=== PATIENT | female | born 1990 | race Caucasian/White ===

== ENCOUNTER 2018-04-03 00:41 | Outpatient (CLI) | payer OTHER ==
[2018-04-03] MEDS ORDERED: PRENATAL 19 TA1 EACH PO (07:24)
[2018-04-03] MEDS ORDERED: FOLIC ACID0.8 MG PO (07:25)
== END 2018-04-03 10:51 | disposition home or self-care (01) ==
LOC: OBS/DEL 00:41
DX: O26.892 Other specified pregnancy related conditions, second trimester (principal); M62.830 Muscle spasm of back; O23.42 Unspecified infection of urinary tract in pregnancy, second trimester; Z34.82 Encounter for supervision of other normal pregnancy, second trimester

== ENCOUNTER 2018-06-01 14:15 | Inpatient (IN) | payer OTHER ==
[~2018-06-01] VITALS: Ht 172.7 cm; Wt 3.6 kg
[~2018-06-01 14:15] MED LIST: FOLIC ACID0.8 MG PO; PRENATAL 19 TA1 EACH PO
== END 2018-07-09 14:40 | DRG 766 ==
LOC: OB/GYN 07-05 14:15 → LDR 07-06 08:26 → O/R 07-06 15:06 → OB/GYN 07-06 16:17
PROVIDERS: Obstetrics & Gynecology
PROC: 4A1HXCZ Monitoring of Products of Conception, Cardiac Rate, External Approach (ICD-10-PCS; 2018-07-06)
PROC: 4A033R1 Measurement of Arterial Saturation, Peripheral, Percutaneous Approach (ICD-10-PCS; 2018-07-06)
PROC: 10D00Z1 Extraction of Products of Conception, Low, Open Approach (ICD-10-PCS; principal; 2018-07-06 14:00)
DX: O76 Abnormality in fetal heart rate and rhythm complicating labor and delivery (principal); O36.63X0 Maternal care for excessive fetal growth, third trimester, not applicable or unspecified; Z3A.40 40 weeks gestation of pregnancy; Z37.0 Single live birth

== ENCOUNTER 2018-07-06 02:07 | Outpatient (CLI) | payer OTHER | END 2018-07-06 09:13 | disposition still patient (30) | LOC: OBS/DEL 02:07 | DX: O48.0 Post-term pregnancy (principal); Z34.83 Encounter for supervision of other normal pregnancy, third trimester ==